=== PATIENT | female | born 1960 | race Caucasian/White ===

== ENCOUNTER → 2019-10-06 | Outpatient (CLI) | payer OTHER ==
--- NOTE | 2019-10-06 13:05 | RADIOLOGY REPORT (SQ) ---
EXAM DESCRIPTION: U/S RETROPERITON (RENAL/AORTA) COMPLETED DATE/TIME: 10/06/2019 12:55 pm REASON FOR STUDY: DISORDER OF KIDNEY AND URETER, UNSPECIFIED N28.9 DISORDER OF KIDNEY AND URETER, U NSPECIFIED COMPARISON: None. TECHNIQUE: Dynamic and static grayscale images acquired of the kidneys and bladder and recorded on P ACS. Additional selected color Doppler and spectral images recorded. LIMITATIONS: None. FINDINGS: RIGHT KIDNEY: The right kidney measures 12.6 cm in length. Normal echogenicity. No so lid or suspicious masses. No hydronephrosis. No calcifications. LEFT KIDNEY: The left kidney is small measured at 8.7 cm. There is cortical thinning. Normal echo genicity. There is a hypoechoic peripelvic structure measured 3.0 x 2.3 x 3.8 cm. Possibly parapel leticia cyst or dilated renal pelvis. No hydronephrosis. No calcifications. BLADDER: No masses. OTHER FINDINGS: No other significant finding. IMPRESSION: Cortical thinning on the left with either prominent renal pelvis or parapelvic cyst as d escribed. TECHNICAL DOCUMENTATION: JOB ID: [id number] [employer]- All Rights Reserved Reading location - IP/workstation name: [email or web address]
== END ==
LOC: RAD 12:32
PROVIDERS: ATTEND Nurse Practitioner Family
DX: N28.89 Other specified disorders of kidney and ureter (principal)
CPT/HCPCS: 76770

== ENCOUNTER → 2019-12-17 | Outpatient (CLI) | payer OTHER ==
--- NOTE | 2019-12-17 12:18 | RADIOLOGY REPORT (SQ) ---
EXAM DESCRIPTION: DUPLEX ART/ISAAC FLOW COMPLETE COMPLETED DATE/TIME: 12/17/2019 8:53 am REASON FOR STUDY: CKD II (N18.2) N18.2 CHRONIC KIDNEY DISEASE, STAGE 2 (MILD) COMPARISON: Ultrasound of the kidneys dated 10/06/2019. TECHNIQUE: Realtime and static grayscale images acquired. Selected color Doppler, velocities and spe ctral images recorded. LIMITATIONS: Limited by bowel gas. FINDINGS: RIGHT KIDNEY: RENAL ARTERY VELOCITIES: 166.3 cm/sec. Segmental artery velocity 42.9 cm/sec. RENAL VEIN: Color doppler flow present, patent. VELOCITY RATIO: 2.2. Normal waveforms. KIDNEY: Normal size. No significant pathology. LEFT KIDNEY: RENAL ARTERY VELOCITIES: 86.3 cm/sec. Segmental artery velocity 45.8 cm/sec. RENAL VEIN: Color doppler flow present, patent. VELOCITY RATIO: 1.4. Normal waveforms. KIDNEY: Normal size. Prominent renal pelvis, unchanged. BLADDER: Normal. OTHER: No other significant finding. IMPRESSION: NO DOPPLER EVIDENCE OF HEMODYNAMICALLY SIGNIFICANT RENAL ARTERY STENOSIS. PROMINENT RENAL PELVIS IN THE LEFT KIDNEY, UNCHANGED FROM PRIOR STUDY. COMMENT: NORMAL RENAL ARTERY/AORTA VELOCITY RATIO IS LESS THAN OR EQUAL TO 3.5. TECHNICAL DOCUMENTATION: JOB ID: [id number] 2010 [email or web address] ([employer])- All Rights Reserved Reading location - IP/workstation name: [email or web address]
== END ==
LOC: RAD 07:24
PROVIDERS: ATTEND Internal Medicine Nephrology
DX: N18.2 Chronic kidney disease, stage 2 (mild) (principal)
CPT/HCPCS: 93975

== ENCOUNTER → 2020-05-26 | Outpatient (CLI) | payer OTHER ==
--- NOTE | 2020-05-26 15:33 | RADIOLOGY REPORT (SQ) ---
EXAM DESCRIPTION: VENOUS UNILATERAL LOWER IMAGES COMPLETED DATE/TIME: 05/26/2020 2:52 pm REASON FOR STUDY: ACUTE DVT OF RT POP V I82.431 ACUTE EMBOLISM AND THROMBOSIS OF RIGHT POPLITEAL VE I COMPARISON: 05/12/2020 TECHNIQUE: Dynamic and static saenz scale and color images acquired of the right leg venous system. S elected spectral images acquired with additional compression and augmentation maneuvers. The contrala teral common femoral vein and saphenofemoral junction were also imaged. Images stored on PACS. LIMITATIONS: None. FINDINGS: COMMON FEMORAL: Normal phasicity, compression and augmentation. No visualized echogenic ma terial on saenz scale. No defects on color images. FEMORAL: Occlusive thrombus. POPLITEAL: Occlusive thrombus. CALF VESSELS: Occlusive thrombus posterior tibial vein. GSV and SSV: Normal compression, augmentation. No visualized echogenic material on saenz scale. No def ects on color images. ANY DEEP VENOUS INSUFFICIENCY: Not evaluated. ANY EVIDENCE OF POPLITEAL CYST: No. OTHER: No other significant finding. CONTRALATERAL COMMON FEMORAL VEIN AND SAPHENOFEMORAL JUNCTION: Normal phasicity, compression and augmentation. No visualized echogenic material on saenz scale. No de fects on color images. IMPRESSION: Known deep vein thrombosis without significant change. TECHNICAL DOCUMENTATION: JOB ID: [id number] 2010 [employer]- All Rights Reserved Reading location - IP/workstation name: [email or web address]
== END ==
LOC: SP 12:50
PROVIDERS: ATTEND Nurse Practitioner Family
DX: I82.431 Acute embolism and thrombosis of right popliteal vein (principal)
CPT/HCPCS: 93971

== ENCOUNTER → 2020-07-11 | Outpatient (CLI) | payer OTHER ==
--- NOTE | 2020-07-11 10:09 | RADIOLOGY REPORT (SQ) ---
EXAM DESCRIPTION: U/S ABDOMEN LIMITED W/O DOP IMAGES COMPLETED DATE/TIME: 07/11/2020 9:56 am REASON FOR STUDY: R22.2 LOCALIZED SWELLING, MASS AND LUMP, TRUNK COMPARISON: None. TECHNIQUE: Dynamic and static grayscale and color Doppler images of the area of palpable abnormality in the paraumbilical region were obtained with and without Valsalva maneuvers. LIMITATIONS: None. FINDINGS: At the site of palpable abnormality in the periumbilical region there is a fat containing hernia that measures 4.2 x 5.2 x 1.8 cm. There are no peristalsing loops of bowel within the hernia sac. IMPRESSION: 4.2 x 5.2 x 1.8 cm fat containing hernia at the site of palpable abnormality in the shubham umbilical region. TECHNICAL DOCUMENTATION: JOB ID: [id number] 2010 [employer]- All Rights Reserved Reading location - IP/workstation name: [email or web address]
== END ==
LOC: RAD 09:16
PROVIDERS: ATTEND Nurse Practitioner Family
DX: K42.9 Umbilical hernia without obstruction or gangrene (principal)
CPT/HCPCS: 76705

== ENCOUNTER → 2020-08-04 | Outpatient (CLI) | payer OTHER ==
--- NOTE | 2020-08-04 15:00 | RADIOLOGY REPORT (SQ) ---
EXAM DESCRIPTION: VENOUS UNILATERAL LOWER IMAGES COMPLETED DATE/TIME: 08/04/2020 1:47 pm REASON FOR STUDY: RLE POP V THROMBOSIS, SWELLING I82.431 ACUTE EMBOLISM AND THROMBOSIS OF RIGHT POP LITEAL VEIN COMPARISON: 05/26/2020 TECHNIQUE: Dynamic and static saenz scale and color images acquired of the right leg venous system. S elected spectral images acquired with additional compression and augmentation maneuvers. The contrala teral common femoral vein and saphenofemoral junction were also imaged. Images stored on PACS. LIMITATIONS: None. FINDINGS: COMMON FEMORAL: Normal phasicity, compression and augmentation. No visualized echogenic ma terial on saenz scale. No defects on color images. FEMORAL: Normal compression and augmentation. No visualized echogenic material on saenz scale. No defe cts on color images. POPLITEAL: Chronic nonocclusive thrombosis. CALF VESSELS: Normal compression, augmentation. No visualized echogenic material on saenz scale. No de fects on color images. GSV and SSV: Normal compression, augmentation. No visualized echogenic material on saenz scale. No def ects on color images. ANY DEEP VENOUS INSUFFICIENCY: Not evaluated. ANY EVIDENCE OF POPLITEAL CYST: No. OTHER: No other significant finding. CONTRALATERAL COMMON FEMORAL VEIN AND SAPHENOFEMORAL JUNCTION: Normal phasicity, compression and augmentation. No visualized echogenic material on saenz scale. No de fects on color images. IMPRESSION: Chronic DVT in the right popliteal vein. No acute DVT or SVT. TECHNICAL DOCUMENTATION: JOB ID: [id number] 2010 [employer]- All Rights Reserved Reading location - IP/workstation name: [email or web address]
== END ==
LOC: SP 12:38
PROVIDERS: ATTEND Nurse Practitioner Family
DX: I82.531 Chronic embolism and thrombosis of right popliteal vein (principal)
CPT/HCPCS: 93971

== ENCOUNTER → 2020-11-09 | Outpatient (CLI) | payer OTHER ==
--- NOTE | 2020-11-09 15:58 | RADIOLOGY REPORT (SQ) ---
EXAM DESCRIPTION: VENOUS UNILATERAL LOWER IMAGES COMPLETED DATE/TIME: 11/09/2020 3:32 pm REASON FOR STUDY: RLE CHRONIC EMBOLISM I82.501 CHRONIC EMBOLISM AND THOMBOS UNSP DEEP VEINS OF R LO COMPARISON: 08/04/2020, 05/26/2020 TECHNIQUE: Dynamic and static saenz scale and color images acquired of the right leg venous system. S elected spectral images acquired with additional compression and augmentation maneuvers. The contrala teral common femoral vein and saphenofemoral junction were also imaged. Images stored on PACS. LIMITATIONS: None. FINDINGS: COMMON FEMORAL: Normal phasicity, compression and augmentation. No visualized echogenic ma terial on saenz scale. No defects on color images. FEMORAL: Normal compression and augmentation. No visualized echogenic material on saenz scale. No defe cts on color images. POPLITEAL: Echogenic nonocclusive thrombus. CALF VESSELS: Normal compression, augmentation. No visualized echogenic material on saenz scale. No de fects on color images. GSV and SSV: Normal compression, augmentation. No visualized echogenic material on saenz scale. No def ects on color images. ANY DEEP VENOUS INSUFFICIENCY: Not evaluated. ANY EVIDENCE OF POPLITEAL CYST: No. OTHER: No other significant finding. CONTRALATERAL COMMON FEMORAL VEIN AND SAPHENOFEMORAL JUNCTION: Normal phasicity, compression and augmentation. No visualized echogenic material on saenz scale. No de fects on color images. IMPRESSION: Chronic nonocclusive thrombus in the popliteal vein. TECHNICAL DOCUMENTATION: JOB ID: [id number] 2010 [email or web address]- All Rights Reserved Reading location - IP/workstation name: [email or web address]
== END ==
LOC: SP 13:56
PROVIDERS: ATTEND Nurse Practitioner Family
DX: I82.531 Chronic embolism and thrombosis of right popliteal vein (principal)
CPT/HCPCS: 93971